=== PATIENT | male | born 1995 | race Caucasian/White ===

== ENCOUNTER 2017-12-27 11:27 | Emergency (ER) | payer BC ==
[~2017-12-27] VITALS: Ht 172.7 cm; Wt 86.7 kg
[2017-12-27 11:34] VITALS: Ht 172.7 cm; Wt 86.7 kg
[2017-12-27 12:55] VITALS: BP 127/78
== END 2017-12-27 12:55 | disposition home or self-care (01) ==
LOC: ED 11:27
DX: F41.0 Panic disorder [episodic paroxysmal anxiety] (principal)